=== PATIENT | female | born 1925 | race Caucasian/White ===

== ENCOUNTER 2016-12-08 10:41 | Outpatient (CLI) | payer MEDICARE, BC ==
[~2016-12-08] VITALS: Ht 160 cm; Wt 61.8 kg
[2016-12-08] MEDS ORDERED: MYRBETRIQ50 MG PO (11:32)
[2016-12-08] MEDS ORDERED: LIPITOR40 MG PO (11:33)
[2016-12-08] MEDS ORDERED: LOPRESSOR25 MG PO (11:33)
[2016-12-08] MEDS ORDERED: CARDIOTEK RX TA1 TA1 PO (11:34)
[2016-12-08] MEDS ORDERED: HYDROCHLOROTHIA50 MG PO (11:34)
[2016-12-08] MEDS ORDERED: HCTZ25 MG PO (11:34)
[2016-12-08] MEDS ORDERED: LISINOPRIL10 MG PO (11:35)
[2016-12-08] MEDS ORDERED: ALEVE220 MG PO (11:35)
[2016-12-08 11:43] VITALS: BP 129/84; Ht 160 cm; Wt 61.8 kg
--- NOTE | 2016-12-08 11:58 | NUR ---
2545 PATIENT HERE FOR PROLIA INJECTION WENT OVER INFORMATION WITH PATIENT. PROLIA GIVEN ON RT ARM SUBCUTANEOUS. ASSESSMENT COMPLETED.
--- NOTE | 2016-12-08 11:59 | NUR ---
1159 SIGNED DISCHARGE INSTRUCTIONS AND VERBALLY UNDERSTANDS.
--- NOTE | 2016-12-08 12:02 | NUR ---
1201 TO HOME AMBULATED DISCHARGE INSTRUCTIONS GIVEN.
== END 2016-12-08 12:01 | disposition home or self-care (01) ==
LOC: D.OPS 10:41
DX: M81.0 Age-related osteoporosis without current pathological fracture (principal)